=== PATIENT | male | born 1990 | race Caucasian/White ===

== ENCOUNTER 2025-02-12 16:49 | Emergency (ER) | payer OTHER ==
[2025-02-12 17:01] VITALS: BP 114/78; PULSE 87; RESP 19; TEMP 98.6; BMI 36.3
[2025-02-12] MEDS ORDERED: ACETAMINOPHEN 500 MG TABLET (FP) ONE (17:54)
[2025-02-12] MEDS ORDERED: IBUPROFEN 400 MG TABLET (FP) PO ONE (17:54)
[2025-02-12] MEDS: IBUPROFEN 400 MG TABLET (FP) PO ONE (18:03)
[2025-02-12] MEDS: ACETAMINOPHEN 500 MG TABLET (FP) PO ONE (18:03)
== END 2025-02-12 20:18 | disposition home or self-care (01) ==
LOC: JERFT 16:49
DX: S93.602A Unspecified sprain of left foot, initial encounter (principal); V03.00XA Pedestrian on foot injured in collision with car, pick-up truck or van in nontraffic accident, initial encounter; Y99.0 Civilian activity done for income or pay; Y92.513 Shop (commercial) as the place of occurrence of the external cause
CPT/HCPCS: 73610-TC-LT-FY; 73630-TC-LT; 99283-25